=== PATIENT | female | born 1945 | race Caucasian/White ===

== ENCOUNTER → 2017-07-08 | Outpatient (CLI) | payer OTHER ==
[~2017-07-08] MED LIST: ALLERGY INJECTIONS; APAP650 PO; ASPIRIN EC81 M1 PO; CALCIUM 600 MG1 EAC2 PO; CATAPRES-TTS 20.2 MG PO; CELEBREX 200 M200 M1 PO; CITRACAL + D C1 EACH PO; CITRACAL + D M1 EACH PO; CLONIDINE HCL0.2 M2 PO; FISH OIL 1,001000 M2 PO; FLUNISOLIDE25 M1 NASAL; GABAPENTIN 100100 MG PO; GABAPENTIN100 MG PO; GLUCOSAMINE CH1 EAC7 PO; LEVOCETIRIZINE D5 MG PO; LEVOTHYROXIN0.025 MG PO; LORATIDINE 10 M10 M1 PO; NASACORT10.8 ML INH; NASAREL25 ML INH; PROTONIX40 M2 PO; RED YEAST RICE600 MG PO; SEPTRA DS TABL1 EACH PO; THERA-M CAPLET1 EACH PO; TRAMADOL 50 MG50 MG PO; TURMERIC500 M1 PO; VITAMIN D1000 UNI1 PO; ZYRTEC10 M5 PO
== END ==
LOC: RAD 13:02
DX: Z12.31 Encounter for screening mammogram for malignant neoplasm of breast (principal)

== ENCOUNTER → 2018-07-14 | Outpatient (CLI) | payer OTHER | LOC: RAD 11:33 | DX: Z12.31 Encounter for screening mammogram for malignant neoplasm of breast (principal) ==

== ENCOUNTER → 2019-07-15 | Outpatient (CLI) | payer OTHER | LOC: RAD 13:41 | DX: Z12.31 Encounter for screening mammogram for malignant neoplasm of breast (principal) ==

== ENCOUNTER → 2020-07-19 | Outpatient (CLI) | payer OTHER | LOC: RAD 13:11 | PROVIDERS: ATTEND Obstetrics & Gynecology | DX: Z12.31 Encounter for screening mammogram for malignant neoplasm of breast (principal) ==